=== PATIENT | male | born 1970 | race Hispanic/Latino ===

== ENCOUNTER 2023-03-27 09:46 | Emergency (ER) | payer BC ==
[2023-03-27] MEDS ORDERED: Ketorolac Tromethamine 30 MG/ML VIAL ONE (10:37)
== END 2023-03-27 12:36 | disposition home or self-care (01) ==
LOC: ERS 09:46
DX: M21.952 Unspecified acquired deformity of left thigh (principal)
CPT/HCPCS: 96372; J1885